=== PATIENT | female | born 1935 | race Two or more races ===

== ENCOUNTER 2024-04-12 14:25 | Inpatient (IN) | payer OTHER ==
[~2024-04-12] VITALS: Ht 157.5 cm; Wt 80.7 kg
--- NOTE | 2024-04-12 15:02 | NUR ---
PACIENTE ALERTA Y ORIENTADA X3 REFIERE TENER [facility] EN PIE DERECHO AREA TIBIA POR [facility]. PTE REFIERE LE HABIAN REALIZADO [facility] DE UN [facility] DE [facility] Y CONSULTARON CON DR. MERRILL PARRA GOMEZ MEDICO INTERNISTA PARA QUE FUERA ADMITIDA. SE MIDE S/V Y SE UBICADA EN ASILAMIENTO #14.
[2024-04-12] MEDS ORDERED: ENOXAPARIN SODIUM 40 MG/0.4 ML SYRINGE SUBCUTANEO SCH (16:20)
[2024-04-12] MEDS ORDERED: FAMOTIDINE/PF 20 MG/2 ML VIAL IV PUSH SCH (16:20)
[2024-04-12] MEDS ORDERED: hydrALAZINE HCL 20 MG VIAL IV PRN (16:30)
[2024-04-12] MEDS ORDERED: ONDANSETRON HCL 2 MG/ML VIAL IV PRN (16:30)
[2024-04-12] MEDS ORDERED: SODIUM CHLORIDE 0.45 % 1,000 ML IV SCH (16:30)
[2024-04-12] MEDS ORDERED: MEROPENEM 1,000 MG in 0.9 % SODIUM CHLORIDE 100 ML IV SCH (17:00)
[2024-04-12] MEDS ORDERED: FAMOTIDINE/PF 20 MG/2 ML VIAL ONE (17:38)
[2024-04-12] MEDS ORDERED: ENOXAPARIN SODIUM 40 MG/0.4 ML SYRINGE SUBCUTANEO ONE (17:38)
[2024-04-12 19:31] VITALS: BP 136/86; O2SAT 100
[2024-04-13 06:49] LABS: HEMATOCRIT 37.7 % (36.0-45.00); HEMOGLOBIN 12.3 g/dL (12.0-15.00); MEAN CELL VOLUME 82.7 fL (80.00-100.00); MEAN CORPUSCULAR HGB CONC 32.7 g/dl (32.0-36.0); PLATELET COUNT 284 K/uL (150-450); RED BLOOD COUNT 4.56 M/uL (4.00-6.00)
[2024-04-13 07:48] LABS: ALBUMIN 3.3 gm/dL (3.4-5.0); BILIRUBIN TOTAL 0.35 mg/dL (0.3-1.2); BILIRUBIN,CONJUGATED 0.11 mg/dL (0.0-0.2); BILIRUBIN,UNCONJUGATED 0.24 mg/dL (0.0-0.6); CALCIUM 9.3 mg/dL (8.5-10.1); CHOL HDL RATIO 2.9 (0-5.0); CREATININE SERUM 0.92 mg/dL (0.55-1.02); GFR 57.74; POTASSIUM 4.14 mEq/L (3.5-5.1); T4 FREE 1.02 NG/ML (0.76-1.46); TOTAL PROTEIN 7.7 gm/dL (6.4-8.2); TSH 1.61 uIU/mL (0.358-3.74)
[2024-04-13 07:52] LABS: C-REACTIVE PROTEIN 1.29 MG/DL (0.00-0.29)
[2024-04-13 08:10] LABS: ERYTHROCYTE SEDIMENTATION RATE 99 mm/hr
[2024-04-13 08:22] VITALS: BP 142/84; O2SAT 99
[2024-04-13] MEDS ORDERED: CRESTOR 5 MG PO SCH (09:00)
[2024-04-13] MEDS ORDERED: MEROPENEM 1,000 MG in 0.9 % SODIUM CHLORIDE 100 ML IV SCH (17:00)
[2024-04-13] MEDS ORDERED: LACTOBACILLUS ACIDOPHILUS 1 CAP CAP PO SCH (17:00)
[2024-04-13 19:22] VITALS: BP 14/75; O2SAT 97
[2024-04-13 19:25] VITALS: BP 140/75
[2024-04-13 19:42] LABS: INR 1.08; PARTIAL THROMBOPLASTIN TIME 28.8 SECONDS (22.0-34.0); PROTHROMBIN TIME 11.7 SECONDS (9.0-11.5)
[2024-04-14 01:22] LABS: PH,URINE 5.5 (5.0-8.0); URINE APPEARANCE Clear; URINE BILIRRUBIN Negative (NEGATIVE); URINE BLOOD Negative; URINE COLOR Yellow; URINE GLUCOSE Negative (NEGATIVE); URINE KETONE Trace (NEGATIVE); URINE LEUKOCYTE Trace; URINE NITRATE Negative; URINE PROTEIN Negative (NEGATIVE); URINE UROBILINOGEN 0.2 E.U./dl
[2024-04-14 01:26] LABS: URINE BACTERIA 13.4 uL (0.0-1933); URINE EPITHELIAL CELLS 10.2 uL (0.0-38.8); URINE RBC 11.1 uL (0.0-20.8); URINE WBC 76.9 uL (0.0-23.2)
[2024-04-14 01:27] LABS: URINE CAST 0.14 uL (0.0-1.40)
[2024-04-14 01:33] VITALS: BP 110/60; O2SAT 96
[2024-04-14 09:21] VITALS: BP 150/60; O2SAT 99
[2024-04-14 18:40] VITALS: BP 147/80; O2SAT 97
[2024-04-15 01:22] VITALS: BP 138/82
[2024-04-15 08:10] VITALS: BP 120/65
[2024-04-15] MEDS ORDERED: FAMOtidine 20 MG TABLET PO SCH (09:00)
[2024-04-15] MEDS ORDERED: CIPROFLOXACIN IN 5 % DEXTROSE 400 MG/200 ML PIGGYBAG IV SCH (17:00)
[2024-04-15 18:32] VITALS: BP 155/78; O2SAT 96
[2024-04-16 02:00] VITALS: BP 133/70
[2024-04-16 08:13] VITALS: BP 153/84
[2024-04-16 17:27] VITALS: BP 180/73; O2SAT 98
[2024-04-17 01:51] VITALS: BP 127/62
[2024-04-17 09:00] VITALS: BP 148/79
[2024-04-17] MEDS ORDERED: ASPIRIN 81 MG TAB.CHEW PO SCH (09:00)
[2024-04-17] MEDS ORDERED: KETOROLAC TROMETHAMINE 60 MG VIAL IM NR (09:00)
[2024-04-17 17:29] VITALS: BP 125/77; O2SAT 96
[2024-04-18 02:49] VITALS: BP 135/54
[2024-04-18 09:37] VITALS: BP 154/71
[2024-04-18 18:03] VITALS: BP 145/84; BP 150/60; O2SAT 98
[2024-04-19 01:06] VITALS: BP 140/63; O2SAT 96
[2024-04-19 07:28] LABS: HEMATOCRIT 39.4 % (36.0-45.00); HEMOGLOBIN 12.7 g/dL (12.0-15.00); MEAN CORPUSCULAR HEMOGLOBIN 26.8 pg (27.00-32.0); MEAN CORPUSCULAR HGB CONC 32.3 g/dl (32.0-36.0); PLATELET COUNT 255 K/uL (150-450); RED BLOOD COUNT 4.74 M/uL (4.00-6.00); RED CELL DISTRIBUTION WIDTH 14.8 % (11.5-14.5)
[2024-04-19 08:15] LABS: ALBUMIN 3.2 gm/dL (3.4-5.0); BILIRUBIN TOTAL 0.28 mg/dL (0.3-1.2); CALCIUM 9.5 mg/dL (8.5-10.1); CREATININE SERUM 0.67 mg/dL (0.55-1.02); GFR 83.26; GLOBULINA 3.4 G/DL (2.4-3.5); PHOSPHOROUS 3.7 mg/dL (2.5-4.9); POTASSIUM 4.4 mEq/L (3.5-5.1); TOTAL PROTEIN 6.6 gm/dL (6.4-8.2)
[2024-04-19 08:19] LABS: C-REACTIVE PROTEIN 0.4 MG/DL (0.00-0.29)
[2024-04-19 08:51] VITALS: BP 139/84
[2024-04-19 16:40] VITALS: BP 159/70; O2SAT 98
[2024-04-20 01:26] VITALS: BP 119/58
[2024-04-20] MEDS ORDERED: INTESTINEX680 M1 PO (08:46)
[2024-04-20] MEDS ORDERED: CIPRO500 MG PO (08:46)
[2024-04-20] MEDS ORDERED: INFLUENZA VACCINE IM NR (09:30)
[2024-04-20 09:51] VITALS: BP 119/59; O2SAT 98
== END 2024-04-20 15:33 | disposition home or self-care (01) | DRG 982 ==
LOC: ER 14:28 → SEC-K 16:54 → MEDJ 16:54 → EDBD 16:54 → MEDJ 04-13 10:54
PROVIDERS: Internal Medicine Infectious Disease; ADMIT Internal Medicine; ATTEND Internal Medicine
PROC: 0JDN0ZZ Extraction of Right Lower Leg Subcutaneous Tissue and Fascia, Open Approach (ICD-10-PCS; principal; 2024-04-13)
PROC: 0JDN0ZZ Extraction of Right Lower Leg Subcutaneous Tissue and Fascia, Open Approach (ICD-10-PCS; 2024-04-13)
PROC: 02HV33Z Insertion of Infusion Device into Superior Vena Cava, Percutaneous Approach (ICD-10-PCS; 2024-04-13)
DX: I83.018 Varicose veins of right lower extremity with ulcer other part of lower leg (principal); L03.115 Cellulitis of right lower limb; L97.818 Non-pressure chronic ulcer of other part of right lower leg with other specified severity; B96.5 Pseudomonas (aeruginosa) (mallei) (pseudomallei) as the cause of diseases classified elsewhere